=== PATIENT | female | born 1985 | race Caucasian/White ===

== ENCOUNTER 2019-03-31 13:37 | Outpatient (CLI) | payer MEDICAID, OTHER ==
[~2019-03-31] VITALS: Ht 167.6 cm; Wt 56.2 kg
[2019-03-31 13:52] VITALS: BP 103/65
[2019-03-31] MEDS ORDERED: ACET1TAB55 PO (14:01)
[2019-03-31] MEDS ORDERED: PRENTAB9 PO (14:01)
--- NOTE | 2019-03-31 14:47 | IPNPDOC ---
Text Note Date of Service The patient was seen on 03/31/19. NOTE Outpatient 34yo ASHLEY 05/20/19. 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 States she's had significant "lightning crotch" and pelvic pressure building since last night. Also reports feeling "wet" and decreased movement. Hx significant for threatened PTL with both previous pregnancies but ultimately delivered both @ term, 37 and 39 wks. States "I didn't feel my contractions with the last one and delivered 8 minutes after arrival to hospital" Previously went to [place] but doesn't want to go there "because they always tell me I have an eating disorder" Being followed by her screen printing supervisor for concerns for growth. Last sono 03/24/19 1531gm, 41% with GONZALES 10.0 No apparent distress, comfortable with ambulation and at rest Abdomen soft, gravid, S<D No UC on monitor Cat I tracing Spec exam - cervix visually LTC, moderate amount creamy cervical mucous Neg pool, neg valsalva, neg nitrazine, neg fern GC/CT and FFN obtained SVE parous, FT, long, -2, cephalic BPP ordered. Liz Aguirre CNM Mar 31, 2019 14:47
--- NOTE | 2019-03-31 15:37 | IPNPDOC ---
Text Note Date of Service The patient was seen on 03/31/19. NOTE Outpatient BPP 03/30, GONZALES 10.4, cervical length 4.3 FFN positive Reviewed findings with pt. She states she has appt with [facility] next week and will have repeat growth sono soon Cat I tracing, no UC Discharged home, routine precautions. Liz Aguirre CNM Mar 31, 2019 15:37
[2019-03-31 15:39] VITALS: BP 112/73
[2019-03-31 16:48] LABS: CHLAMYDIA DNA AMPLIFICATION NEGATIVE (NEGATIVE); GC DNA AMPLIFICATION NEGATIVE (NEGATIVE)
--- NOTE | 2019-04-01 09:58 | REP ---
OB ULTRASOUND, BIOPHYSICAL PROFILE: Real-time sonographic evaluation of the gravid uterus performed. There is a single living intrauterine gestation, estimated gestational age is reportedly 32 weeks 0 days, EDC 05/19/2019. Cervix is closed and measures 4.3 cm in length. heart rate 146 beats per minute. Amniotic fluid is within normal limits. GONZALES, 10.4 within normal range of 8.3 to 24.5. Biophysical profile score 8/8. S/D ratio 3.25 slightly above the normal range of 2.0 to 3.0. RI 0.69 is within normal range of 0.59 to 0.75. position is vertex. Placenta is anterior and grade 1 with no previa or abruption. Electronically Signed by Kevin Goins MD 04/03/2019 11:36 A
== END 2019-03-31 15:59 | disposition home or self-care (01) ==
LOC: M LDO 13:37
PROVIDERS: ATTEND Advanced Practice Midwife
DX: O26.893 Other specified pregnancy related conditions, third trimester (principal); R10.2 Pelvic and perineal pain; O36.8131 Decreased fetal movements, third trimester, fetus 1; Z3A.32 32 weeks gestation of pregnancy

== ENCOUNTER 2021-09-28 11:49 | Outpatient (CLI) ==
[~2021-09-28] VITALS: Ht 167.6 cm; Wt 64.1 kg
[~2021-09-28 11:49] MED LIST: ACET1TAB55 PO; PRENTAB9 PO
== END 2021-09-28 14:35 | disposition home or self-care (01) ==
LOC: M LDO 11:49
PROVIDERS: ATTEND Obstetrics & Gynecology
DX: O60.03 Preterm labor without delivery, third trimester (principal); O26.893 Other specified pregnancy related conditions, third trimester; R10.2 Pelvic and perineal pain; Z3A.00 Weeks of gestation of pregnancy not specified
CPT/HCPCS: 59025; 82731; G0463

== ENCOUNTER 2021-10-19 21:15 | Inpatient (IN) | payer OTHER ==
[~2021-10-19] VITALS: Ht 167.6 cm; Wt 67.5 kg
[2021-10-19 21:36] VITALS: BP 131/93
[2021-10-19] MEDS ORDERED: UNIS25TA3 PO (21:39)
[2021-10-19] MEDS ORDERED: REGL10TA6 PO (21:39)
[2021-10-19] MEDS ORDERED: STRA100C PO (21:42)
[2021-10-19] MEDS ORDERED: HOME MED LIST COMPLETE! XX SCH (21:45)
[2021-10-19 22:11] VITALS: BP 153/102
[2021-10-19 22:26] VITALS: BP 140/100
[2021-10-19 22:42] VITALS: BP 143/96
[2021-10-19 22:45] LABS: TOTAL PROTEIN,RANDOM URINE 1213.9 MG/DL (0.0-12.0)
[2021-10-19] MEDS ORDERED: LACTATED RINGER'S 1000 ML IV STA (22:49)
[2021-10-19] MEDS ORDERED: PENICILLIN G POTASSIUM IV 5 MU in D5W MINI-BAG PLUS 100 ML IV STA (22:49)
[2021-10-19] MEDS ORDERED: OXYTOCIN DRIP 30 UNITS in IV 1 EA IV PRN (22:50)
[2021-10-19] MEDS ORDERED: CARBOPROST TROMETHAMINE 250 MCG/ML AMP IM PRN (22:50)
[2021-10-19] MEDS ORDERED: TRANEXAMIC ACID INJection 1,000 MG in NS 100 ML IV PRN (22:50)
[2021-10-19] MEDS ORDERED: LIDOCAINE 1% MDV 20ML VIAL INFIL PRN (22:50)
[2021-10-19] MEDS ORDERED: LR 1,000 ML IV SCH (22:50)
[2021-10-19] MEDS ORDERED: OXYTOCIN DRIP 30 UNITS in IV 1 EA IV SCH (22:50)
[2021-10-19 22:54] LABS: HEMOGLOBIN 11.6 g/dl (12.0-15.5); MEAN CORPUSCULAR HEMOGLOBIN 27.6 pg (27.0-33.0); MEAN CORPUSCULAR HGB CONC 33.1 g/dl (32.0-36.5); MEAN CORPUSCULAR VOLUME 83.3 fl (80.0-96.0); PLATELET COUNT, AUTOMATED 136 10^3/uL (150-450)
[2021-10-19 23:00] VITALS: BP 146/96
[2021-10-19 23:36] LABS: ALBUMIN 1.8 GM/DL (3.2-5.2); ALT/SGPT 13 U/L (12-78); BILIRUBIN,TOTAL 0.3 MG/DL (0.2-1.0); BLOOD UREA NITROGEN 13 MG/DL (7-18); CALCIUM LEVEL 8.1 MG/DL (8.5-10.1); CARBON DIOXIDE LEVEL 22 MEQ/L (21-32); CHLORIDE LEVEL 109 MEQ/L (98-107); CREATININE FOR GFR 0.75 MG/DL (0.55-1.30); GLOMERULAR FILTRATION RATE > 60.0 (>60); GLUCOSE, FASTING 78 MG/DL (70-100); LDH LACTATE DEHYDROGENASE 293 U/L (84-246); POTASSIUM SERUM 4.3 MEQ/L (3.5-5.1); SODIUM LEVEL 138 MEQ/L (136-145); URIC ACID 6.9 MG/DL (2.6-6.0)
[2021-10-19 23:47] VITALS: BP 128/97
[2021-10-20] VITALS (22 sets, daily range): BP systolic 116–179; BP diastolic 66–116
[2021-10-20] MEDS ORDERED: ONDANSETRON 4MG/2ML VIAL As Ordered ONE (00:23)
[2021-10-20] MEDS ORDERED: ONDANSETRON 4MG/2ML VIAL IV ONE (01:00)
[2021-10-20] MEDS ORDERED: ACETAMINOPHEN 500 MG TAB PO ONE (03:00)
[2021-10-20] MEDS ORDERED: LABETALOL 100MG/20ML VIAL IV STA (03:00)
[2021-10-20] MEDS ORDERED: PENICILLIN G POTASSIUM IV 2.5 MU in IV 1 EA IV SCH (03:00)
[2021-10-20] MEDS ORDERED: DOCUSATE SODIUM 100MG CAPSULE PO PRN (05:00)
[2021-10-20] MEDS ORDERED: ACETAMINOPHEN TAB 650MG DOSE (2X325MG) PO PRN (05:00)
[2021-10-20] MEDS ORDERED: IBUPROFEN 600MG TAB PO PRN (05:00)
[2021-10-20] MEDS ORDERED: DIBUCAINE 1% OINTMENT 30GM TOP PRN (05:00)
[2021-10-20] MEDS ORDERED: OXYTOCIN DRIP 30 UNITS in IV 1 EA IV SCH (05:00)
[2021-10-20] MEDS ORDERED: RHOGAM 300 MCG (1500 IU) INJ (J2790) IM SCH (05:00)
[2021-10-20] MEDS ORDERED: ACETAMINOPHEN 500 MG TAB PO PRN (05:00)
[2021-10-20] MEDS ORDERED: IBUPROFEN 800 MG TAB PO PRN (05:00)
[2021-10-20] MEDS ORDERED: ONDANSETRON 4MG/2ML VIAL IV PRN (05:00)
[2021-10-20] MEDS: LR 1,000 ML IV SCH ×3 (05:00→21:00)
[2021-10-20] MEDS ORDERED: MEASLES,MUMPS,RUBELLA VACCINE INJ (MMR-II) (90707) SC SCH (05:00)
[2021-10-20] MEDS ORDERED: LABETALOL 200 MG TAB PO ONE (10:25)
[2021-10-20] MEDS: PRENATAL VITAMINS CHEWABLE TABLET PO SCH (10:46)
[2021-10-20] MEDS ORDERED: NIFEdipine 30 MG XL TAB PO STA (12:38)
[2021-10-20] MEDS: LABETALOL 200 MG TAB PO SCH (21:00)
[2021-10-21] VITALS (7 sets, daily range): BP systolic 124–152; BP diastolic 68–94
[2021-10-21] MEDS ORDERED: ONDANSETRON 4MG/2ML VIAL IV ONE
[2021-10-21 07:22] LABS: HEMATOCRIT 34.7 % (36.0-47.0); HEMOGLOBIN 11.5 g/dl (12.0-15.5); MEAN CORPUSCULAR HEMOGLOBIN 27.6 pg (27.0-33.0); MEAN CORPUSCULAR HGB CONC 33.1 g/dl (32.0-36.5); MEAN CORPUSCULAR VOLUME 83.2 fl (80.0-96.0); PLATELET COUNT, AUTOMATED 170 10^3/uL (150-450); RED BLOOD COUNT 4.17 10^6/uL (4.00-5.40); WHITE BLOOD COUNT 12.6 10^3/uL (4.0-10.0)
[2021-10-21 07:49] LABS: ALT/SGPT 18 U/L (12-78); BILIRUBIN,TOTAL 0.2 MG/DL (0.2-1.0); CREATININE FOR GFR 0.72 MG/DL (0.55-1.30); GLOMERULAR FILTRATION RATE > 60.0 (>60); LDH LACTATE DEHYDROGENASE 275 U/L (84-246); URIC ACID 6.8 MG/DL (2.6-6.0)
[2021-10-21] MEDS: PRENATAL VITAMINS CHEWABLE TABLET PO SCH (07:54)
[2021-10-21] MEDS: LABETALOL 200 MG TAB PO SCH ×2 (07:54→21:37)
[2021-10-21] MEDS ORDERED: FUROSEMIDE 20MG/2ML VIAL (J1940) IV ONE (14:00)
[2021-10-21] MEDS ORDERED: FUROSEMIDE 20 MG TAB PO ONE (16:00)
[2021-10-22 02:46] VITALS: BP 134/70
[2021-10-22 05:24] VITALS: BP 132/86
[2021-10-22 08:06] VITALS: BP 138/92
[2021-10-22] MEDS: LABETALOL 200 MG TAB PO SCH (08:08)
[2021-10-22] MEDS: PRENATAL VITAMINS CHEWABLE TABLET PO SCH (08:08)
[2021-10-22] MEDS ORDERED: LABE20TAB PO (10:54)
[2021-10-25] MEDS ORDERED: LABE200T3 PO (11:24)
== END 2021-10-22 11:50 | disposition home or self-care (01) | DRG 560 ==
LOC: M LDO 21:15 → M LDI 22:48 → M OBS 10-20 09:00
PROVIDERS: ADMIT Obstetrics & Gynecology; ATTEND Obstetrics & Gynecology
PROC: 10E0XZZ Delivery of Products of Conception, External Approach (ICD-10-PCS; principal; 2021-10-20)
DX: O14.94 Unspecified pre-eclampsia, complicating childbirth (principal); O60.14X0 Preterm labor third trimester with preterm delivery third trimester, not applicable or unspecified; Z3A.36 36 weeks gestation of pregnancy; Z37.0 Single live birth

== ENCOUNTER 2024-06-27 17:36 | Outpatient (CLI) | payer OTHER ==
[~2024-06-27] VITALS: Ht 167.6 cm; Wt 71.3 kg
[~2024-06-27 17:36] MED LIST changes: +LABE200T5 PO; +LABE20TAB PO; +REGL10TA6 PO; +STRA100C PO; +UNIS25TA3 PO
[2024-06-27 17:59] VITALS: BP 111/73
[2024-06-27] MEDS ORDERED: HOME MED LIST COMPLETE! XX SCH (18:05)
[2024-06-27] MEDS ORDERED: VALT500T PO (18:11)
[2024-06-27 18:20] VITALS: BP 117/80
[2024-06-27 18:34] VITALS: BP 117/80
[2024-06-27 18:51] VITALS: BP 127/86
== END 2024-06-27 19:10 | disposition home or self-care (01) ==
LOC: M LDO 17:36
PROVIDERS: ATTEND Obstetrics & Gynecology
DX: O14.93 Unspecified pre-eclampsia, third trimester (principal); O09.523 Supervision of elderly multigravida, third trimester; Z3A.36 36 weeks gestation of pregnancy
CPT/HCPCS: 59025; G0463